=== PATIENT | male | born 1980 | race African-American/Black ===

== ENCOUNTER 2017-12-03 17:38 | Emergency (ER) | payer OTHER, SELFPAY ==
[2017-12-03 18:08] LABS: #Basophils 0.1 thou/uL (0.0-0.2); #Eosinphils 0.1 thou/uL (0.0-0.7); #Lymphocytes 2.3 thou/uL (1.20-3.40); #Monocytes 0.7 thou/uL (0.11-0.59); #Neutrophils 5.2 thou/uL (1.40-6.50); %Basophils 0.8 % (0.0-1.0); %Eosinophils 1.4 % (0.0-10.0); %Lymphocytes 27.4 % (21.0-51.0); %Monocytes 8.5 % (0.0-10.0); %Neutrophils 61.9 % (42.0-75.0); Hemoglobin 16.2 g/dL (14.0-18.0); Mean Corpuscular HGB CONC 33.8 g/dL (32.0-36.0); Mean Corpuscular Hemoglobin 32.2 pg (27.0-31.0); Mean Corpuscular Volume 95.3 fL (78.0-98.0); Mean Platelet Volume 8.3 fL (7.4-10.4); Platelet Count 223 thou/uL (130-400); RBC Distribution Width 11.9 % (11.5-14.5); Red Blood Cell (RBC) Count 5.04 mill/uL (4.70-6.10); White Blood Cell (WBC) Count 8.5 thou/uL (4.8-10.8)
[2017-12-03 18:28] LABS: Albumin 4.8 g/dL (3.5-5.0)
[2017-12-03 18:30] LABS: Chloride 100 mmol/L (98-107); Potassium 3.6 mmol/L (3.5-5.1); Sodium 137 mmol/L (136-145)
[2017-12-03 18:31] LABS: Globulin 3.2 g/dL (2.4-3.5); Glucose 95 mg/dL (70-105)
[2017-12-03 18:32] LABS: Carbon Dioxide 27 mmol/L (22-29)
[2017-12-03 18:33] LABS: Anion Gap 14 mmol/L (10-20); Bilirubin, Total 0.9 mg/dL (0.2-1.2)
[2017-12-03 18:34] LABS: Calc. Creatinine Clearance 0 mL/min (70-130); Estimated GFR-MDRD 86
[2017-12-03 18:35] LABS: BUN (Urea Nitrogen) 9 mg/dL (8.9-20.6)
[2017-12-03 18:36] LABS: AST (SGOT) 20 U/L (5-34)
[2017-12-03 18:37] LABS: ALT (SGPT) 19 U/L (8-55); Lipase 53 U/L (8-78)
[2017-12-03 18:42] LABS: Alkaline Phosphatase 121 U/L (40-150)
[2017-12-03] MEDS ORDERED: Ketorolac Tromethamine 30 MG/ML VIAL ONE (18:42)
[2017-12-03] MEDS ORDERED: Ondansetron HCl/PF 4 MG/2 ML Vial ONE (18:42)
[2017-12-03 19:03] LABS: Bilirubin Negative (Negative); Blood, Urine Negative (Negative); Clarity CLEAR (Clear); Glucose, Urine (Dipstick) Negative (Negative); Leukocyte Negative (Negative); Nitrite Negative (Negative); Protein, Urine (Dipstick) Negative (Neg-Trace); Specific Gravity, Urine 1.005 (1.002-1.036); pH, Urine 7.5 (5.0-9.0)
--- NOTE | 2017-12-03 20:38 | CT ---
NONCONTRAST CT ABDOMEN AND PELVIS: 12/03/17 HISTORY: Abdominal pain with onset of symptoms two days ago. Diarrhea. COMPARISON: None available. FINDINGS: Lack of intravenous contrast limits sensitivity for evaluation of the parenchymal organs. However, t he lung bases, liver, spleen, pancreas, bilateral adrenal glands, kidneys, and urinary bladder demons trate a grossly normal nonenhanced CT appearance. No renal or ureteral calculi are seen bilaterally and there is no evidence of hydronephrosis. The appendix is visualized and filled with gas and is normal in caliber. There is suggestion of mild thickening of a few loops of small bowel in the left upper quadrant. This is overall nonspecific. No adjacent inflammatory stranding is present. Enteritis could not be entire ly excluded. This could be related to peristalsis. No free fluid or free intraperitoneal gas is seen in the abdomen or pelvis. No enlarged lymph nodes a re seen on this nonenhanced CT scan exam. IMPRESSION: 1. There is mild wall thickening involving a few loops of small bowel in the left upper quadrant which is nonspecific. No definite adjacent inflammatory changes are seen. This could be related to p eristalsis, but enteritis cannot be entirely excluded. 2. No renal or ureteral calculi are seen bilaterally. 3. No CT evidence of appendicitis. POS: [facility]
== END 2017-12-03 19:49 | disposition home or self-care (01) ==
LOC: ERS 17:38
DX: K52.9 Noninfective gastroenteritis and colitis, unspecified (principal); I10 Essential (primary) hypertension; F17.210 Nicotine dependence, cigarettes, uncomplicated; Z79.899 Other long term (current) drug therapy
CPT/HCPCS: 74176; 80053; 81003; 83690; 85025; 87491; 87591; 96361; 96374; J1885; J2405

== ENCOUNTER 2019-08-26 15:59 | Emergency (ER) | payer SELFPAY ==
[2019-08-26 16:30] LABS: Bilirubin Negative (Negative); Blood, Urine Negative (Negative); Clarity Clear (Clear); Glucose, Urine (Dipstick) Normal (Negative); Ketone, Urine Negative (Negative); Leukocyte Negative Leu/uL (Negative); Nitrite Negative (Negative); Protein, Urine (Dipstick) 10 mg/dL (Neg-Trace); Specific Gravity, Urine 1.028 (1.002-1.036)
== END 2019-08-26 18:03 | disposition home or self-care (01) ==
LOC: ERS 15:59
DX: R30.0 Dysuria (principal); I10 Essential (primary) hypertension; F17.210 Nicotine dependence, cigarettes, uncomplicated; Z79.899 Other long term (current) drug therapy
CPT/HCPCS: 81003; 99283